=== PATIENT | male | born 1980 ===

== ENCOUNTER 2024-09-19 13:00 | Emergency (ER) | payer BC, SELFPAY ==
--- NOTE | ~2024-09-19 | XR_ITS ---
XR foot LT min 3V Ordering provider: Kendall Mercer MD History: . injury . Comparison: None. FINDINGS: BONES: No acute fracture or dislocation. JOINT SPACES: Normal. No tarsal coalition. SOFT TISSUES: Normal. Calcaneus spur. Ossification of the insertion of the tendo Achilles. IMPRESSION: No acute osseous abnormality left foot. Reviewed, dictated and finalized at location A.
[2024-09-19 13:01] VITALS: BP 148/79; PULSE 77; RESP 16; TEMP 36.4; O2SAT 98
--- NOTE | 2024-09-19 15:03 | ED_ITS ---
HPI - Extremity Injury (Lower) General Chief Complaint: Extremity Injury, Lower Stated Complaint: L foot pain after falling on 09/17/24 Time Seen by Provider: 09/19/24 14:38 History of Present Illness HPI Narrative: 44-year-old male presents ER complaining of left foot pain. Patient states he accidentally stepped in a hole and twisted his foot several days ago. Pain is worse with ambulation. States he applied ice and has been taking Tylenol ibuprofen with minimal improvement. Related Data Allergies Allergy/AdvReac Type Severity Reaction Status Date / Time No Known Allergies Allergy Unverified 09/19/24 13:03 Review of Systems Review of Systems: All systems reviewed & are unremarkable except as noted in HPI and below PMFSH Social History Social History Smoking status: Never smoker Alcohol intake: current Exam Const: General: healthy appearing, no acute distress and alert Nutritional Appearance: well nourished and obese Resp: Effort & Inspection: normal respiratory effort Auscultation: clear to auscultation bilaterally Cardio: Rate: regular rate Rhythm: regular rhythm Skin: General skin exam: normal color Neuro: General: patient oriented x3, moves all extremities and CN's II-XI intact bilaterally Extrem: Other: left foot: Tenderness and swelling over the cuboid and base of the 4th meta tarsal. LROM. Neurovascular is intact distally Course Vital Signs Vital signs: Vital Signs Temperature 36.4 C L 09/19/24 13:01 Pulse Rate 77 09/19/24 13:01 Respiratory Rate 16 09/19/24 13:01 Blood Pressure 148/79 H 09/19/24 13:01 Pulse Oximetry 98 09/19/24 13:01 Temperature 36.4 C L 09/19/24 13:01 Pulse Rate 77 09/19/24 13:01 Respiratory Rate 16 09/19/24 13:01 Blood Pressure 148/79 H 09/19/24 13:01 Pulse Oximetry 98 09/19/24 13:01 MDM - Extremity Injury (Lower) MDM Narrative Medical decision making narrative: In summary: 44-year-old male presents ER complaining of left foot pain after stepping into a hole. Patient was ambulatory and able to bear weight following the injury. Imaging shows no acute fracture. Patient was placed in a walking boot and provided crutches for relief. States he has a follow-up with Podiatry in 3 weeks. Differential includes of foot sprain, contusion, dislocation, fracture Discharge Plan Discharge Clinical Impression: Sprain of foot, left Qualifiers: Encounter type: initial encounter Qualified Code(s): S93.602A - Unspecified sprain of left foot, initial encounter Patient Disposition: Home Condition: Stable Instructions: Antibiotic Form, Foot Sprain (ED) Patient Language: Icelandic Prescriptions: New naproxen 500 mg tablet 500 mg PO BID Qty: 20 0RF Follow-up/Referrals: Ti Lira MD [Primary Care Provider] - Time of Disposition: 15:08
== END 2024-09-19 15:34 | disposition home or self-care (01) ==
PROVIDERS: Emergency Provider Nurse Practitioner Family; PCP Family Medicine
DX: S93.602A Unspecified sprain of left foot, initial encounter (principal); X50.9XXA Other and unspecified overexertion or strenuous movements or postures, initial encounter
CPT/HCPCS: 73630; 99283